=== PATIENT | female | born 2000 | race Hispanic/Latino ===

== ENCOUNTER 2022-05-04 23:02 | Emergency (ER) | payer OTHER ==
[2022-05-05] MEDS ORDERED: Ondansetron ODT 8 MG TAB ONE (00:16)
== END 2022-05-05 01:52 | disposition home or self-care (01) ==
LOC: ERS 23:02
DX: S09.90XA Unspecified injury of head, initial encounter (principal); R11.2 Nausea with vomiting, unspecified; X58.XXXA Exposure to other specified factors, initial encounter
CPT/HCPCS: 70450; Q0162